=== PATIENT | male | born 1970 | race Caucasian/White ===

== ENCOUNTER 2020-08-20 08:43 | Inpatient (IN) | payer BC, OTHER ==
[~2020-08-20] VITALS: Ht 185.4 cm; Wt 130.8 kg
[2020-08-20] MEDS ORDERED: ASPirin 81 mg TAB PO ONE (09:15)
[2020-08-20] MEDS ORDERED: MORPHINE SULFATE 4 MG/ML SYR/VIAL IV ONE (09:15)
[2020-08-20] MEDS ORDERED: ONDANSETRON HCL 4 MG/2 ML VIAL IV ONE (09:15)
[2020-08-20] MEDS ORDERED: NITROGLYCERIN 0.4 MG SL TAB SL ONE (09:15)
[2020-08-20 09:26] LABS: Basophils # (auto) 0.1 10 ^3/uL (0-0.2); Basophils % (auto) 0.8 % (0.0-2.0); Eosinophils # (auto) 0.1 10 ^3/uL (0-0.8); Eosinophils % (auto) 0.8 % (0.0-7.0); Hematocrit 44.3 % (41.0-53.0); Hemoglobin 15.1 g/dL (13.5-17.5); Lymphocytes # (auto) 2.8 10 ^3/uL (0.4-5.4); Lymphocytes % (auto) 40.8 % (10.0-50.0); Mean Corpuscular Hemoglobin 29.3 pg (28.0-32.0); Mean Corpuscular Hgb Conc. 34.1 g/dL (32.0-36.0); Mean Corpuscular Volume 86.1 fL (80.0-100.0); Monocytes # (auto) 0.5 10 ^3/uL (0-1.3); Monocytes % (auto) 7.4 % (0.0-12.0); Neutrophils # (auto) 3.4 10 ^3/uL (1.6-8.6); Neutrophils % (auto) 50.2 % (37.0-80.0); Nucleated Red Blood Cells % 0.1 %; Platelet Count (auto) 176 10^3/uL (140-450); Red Blood Cells 5.14 10^6/uL (4.5-5.90); Red Cell Distribution Width 14.2 % (11.8-14.3); White Blood Cell 6.9 10^3/uL (4.4-10.8)
[2020-08-20 09:40] LABS: Alanine Aminotransferase 50 U/L (16-61); Anion Gap 7 (5-15); Aspartate Aminotransferase 21 U/L (15-37); BUN/Creatinine Ratio 16.5; Blood Urea Nitrogen 13 mg/dL (7-18); Calcium 8.6 mg/dL (8.5-10.1); Carbon Dioxide 23 mmol/L (21-32); Chloride 106 mmol/L (98-107); GFR African American 135 mL/min; GFR Non-African American 111 mL/min; Glucose 154 mg/dL (74-106); Sodium 136 mmol/L (136-145)
[2020-08-20 09:50] LABS: Alkaline Phosphatase 65 U/L (45-117); Bilirubin, Total 0.5 mg/dL (0.2-1.0); Total Protein 7.9 g/dL (6.4-8.2)
[2020-08-20 11:58] LABS: Amphetamine Screen, Urine NEGATIVE (NEGATIVE); Barbiturate Scree,Urine NEGATIVE (NEGATIVE); Benzodiazephine Screen, Urine NEGATIVE (NEGATIVE); Cannabinoid Screen, Urine NEGATIVE (NEGATIVE); Cocaine Screen, Urine NEGATIVE (NEGATIVE); Opiate Scree,Urine NEGATIVE (NEGATIVE); Phencyclidine Screen, Urine NEGATIVE (NEGATIVE)
[2020-08-20] MEDS ORDERED: NITROGLYCERIN 0.4 MG SL TAB SL PRN (12:15)
[2020-08-20] MEDS ORDERED: ONDANSETRON HCL 4 MG/2 ML VIAL IV PRN (12:15)
[2020-08-20] MEDS ORDERED: MORPHINE SULF INJ 2 MG/ML SYRINGE 1ML IV PRN ×2 (12:15)
[2020-08-20] MEDS ORDERED: HYDROcodone-ACET 5/325MG TAB PO PRN (12:15)
[2020-08-20] MEDS ORDERED: hydrALAZINE HCL 20 MG/ML VL IV PRN (12:15)
[2020-08-20] MEDS ORDERED: NITROGLYCERIN 0.4MG/HR TOPICAL PATCH TD ONE (12:15)
[2020-08-20 12:48] LABS: CRP High Sensitivity 0.06 mg/dL (< 0.3)
[2020-08-20] MEDS: ACETAMINOPHEN 500 MG TAB PO PRN (17:08)
[2020-08-20 20:00] VITALS: BP 129/63
[2020-08-20] MEDS: ATORVASTATIN 20 MG TAB PO SCH (21:09)
[2020-08-20] MEDS: METOPROLOL TARTRATE 25 MG TAB PO SCH (21:09)
[2020-08-20] MEDS ORDERED: METO-158 PO (21:58)
[2020-08-20] MEDS ORDERED: ATOR80TA PO (21:58)
[2020-08-20] MEDS ORDERED: LISI-275 PO (21:58)
[2020-08-20 22:00] VITALS: BP 129/63
[2020-08-20 23:30] LABS: INR 1.08 (0.9-1.15)
[2020-08-21 05:09] VITALS: BP 120/71
[2020-08-21 05:21] LABS: Basophils # (auto) 0 10 ^3/uL (0-0.2); Basophils % (auto) 0.4 % (0.0-2.0); Eosinophils # (auto) 0.1 10 ^3/uL (0-0.8); Eosinophils % (auto) 1.2 % (0.0-7.0); Hematocrit 42.4 % (41.0-53.0); Hemoglobin 14.4 g/dL (13.5-17.5); Lymphocytes # (auto) 2.8 10 ^3/uL (0.4-5.4); Lymphocytes % (auto) 30.8 % (10.0-50.0); Mean Corpuscular Hemoglobin 29.5 pg (28.0-32.0); Mean Corpuscular Volume 86.8 fL (80.0-100.0); Monocytes # (auto) 0.7 10 ^3/uL (0-1.3); Monocytes % (auto) 8.2 % (0.0-12.0); Neutrophils # (auto) 5.3 10 ^3/uL (1.6-8.6); Neutrophils % (auto) 59.4 % (37.0-80.0); Platelet Count (auto) 153 10^3/uL (140-450); Red Blood Cells 4.88 10^6/uL (4.5-5.90); Red Cell Distribution Width 13.9 % (11.8-14.3)
[2020-08-21 05:35] LABS: BUN/Creatinine Ratio 16.7; Calcium 8.5 mg/dL (8.5-10.1)
[2020-08-21 05:36] LABS: INR 1.08 (0.9-1.15); Partial Thromboplastin Time 28.8 sec (23.0-31.2)
[2020-08-21 06:57] LABS: Urine Bacteria NONE SEEN /hpf (None Seen); Urine Blood Negative /uL (Negative); Urine Mucus FEW (None Seen); Urine Specific Gravity 1.023 (1.001-1.035); Urine WBC 1 /hpf (0 - 3)
[2020-08-21] MEDS: ACETAMINOPHEN 500 MG TAB PO PRN (08:38)
[2020-08-21] MEDS: METOPROLOL TARTRATE 25 MG TAB PO SCH ×2 (08:38→21:28)
[2020-08-21] MEDS: LISINOPRIL 10 MG TAB PO SCH (08:39)
[2020-08-21] MEDS: ASPirin-EC 81 mg tab PO SCH (08:39)
[2020-08-21] MEDS: NITROGLYCERIN 0.4MG/HR TOPICAL PATCH TD SCH (08:42)
[2020-08-21] MEDS: FAMOTIDINE 20 MG TAB PO SCH (08:48)
[2020-08-21 09:00] VITALS: BP 119/62
[2020-08-21 13:00] VITALS: BP 120/56
[2020-08-21] MEDS: ATORVASTATIN 20 MG TAB PO SCH (21:27)
[2020-08-21 21:33] VITALS: BP 133/68
[2020-08-22 05:30] VITALS: BP 122/65
[2020-08-22] MEDS ORDERED: IODIXANOL 320MG/ML 100ML BTL IV ONE ×2 (07:28→07:35)
[2020-08-22] MEDS ORDERED: LIDOCAINE 2%HCL (LOCAL ANESTH.) INJ 20ML MDV ONE (07:28)
[2020-08-22] MEDS ORDERED: ANGIOMAX 250 MG VIAL IV ONE (07:34)
[2020-08-22] MEDS ORDERED: HEPARIN SODIUM (PORCINE) 5000 UNITS/ML 1ML VIAL ONE (07:34)
[2020-08-22] MEDS ORDERED: VERAPAMIL 2.5MG/ML INJ 2ML VIAL IV ONE (07:34)
[2020-08-22] MEDS ORDERED: SODIUM CHL 0.9% 50 ML ONE (07:35)
[2020-08-22] MEDS ORDERED: fentaNYL CITRATE 100 MCG/2 ML VL ONE ×2 (07:35→08:02)
[2020-08-22] MEDS ORDERED: MIDAZOLAM HCL 1MG/1ML-2 ML VIAL ONE (07:35)
[2020-08-22] MEDS: NITROGLYCERIN 0.4MG/HR TOPICAL PATCH TD SCH (10:00)
[2020-08-22] MEDS: METOPROLOL TARTRATE 25 MG TAB PO SCH (11:21)
[2020-08-22] MEDS: ASPirin-EC 81 mg tab PO SCH (11:21)
[2020-08-22] MEDS: LISINOPRIL 10 MG TAB PO SCH (11:21)
[2020-08-22] MEDS: FAMOTIDINE 20 MG TAB PO SCH (11:21)
[2020-08-22] MEDS ORDERED: ASPI-543 PO (11:35)
[2020-08-22] MEDS ORDERED: ATOR20TA50 PO (11:35)
[2020-08-22 13:00] VITALS: BP 138/75
[2020-08-22] MEDS: ACETAMINOPHEN 500 MG TAB PO PRN (13:19)
[2020-08-22 14:32] VITALS: BP 132/69
== END 2020-08-22 15:50 | disposition home or self-care (01) | DRG 287 ==
LOC: ER 08:43 → TELE 12:10 → TELE-WESTW 19:32
PROVIDERS: ADMIT Nurse Practitioner Acute Care; ATTEND Internal Medicine
PROC: 4A023N7 Measurement of Cardiac Sampling and Pressure, Left Heart, Percutaneous Approach (ICD-10-PCS; principal; 2020-08-22)
PROC: B2111ZZ Fluoroscopy of Multiple Coronary Arteries using Low Osmolar Contrast (ICD-10-PCS; 2020-08-22)
DX: I25.10 Atherosclerotic heart disease of native coronary artery without angina pectoris (principal); I50.20 Unspecified systolic (congestive) heart failure; I11.0 Hypertensive heart disease with heart failure; E78.5 Hyperlipidemia, unspecified; Z20.822 Contact with and (suspected) exposure to COVID-19; E66.01 Morbid (severe) obesity due to excess calories; Z95.5 Presence of coronary angioplasty implant and graft; Z68.38 Body mass index [BMI] 38.0-38.9, adult; Z82.49 Family history of ischemic heart disease and other diseases of the circulatory system; Z87.891 Personal history of nicotine dependence
CPT/HCPCS: 36415; 71046; 80048; 80053; 80061; 80307; 81001; 84484; 85025; 85610; 85730; 86141; 86850; 86900; 86901; 87426; 93005; 93306; 93458; 96374; 96375; 99152; 99153; G0378; J2250; J2405; Q9967

== ENCOUNTER 2022-08-04 19:53 | Emergency (ER) | payer BC, OTHER ==
[~2022-08-04] VITALS: Ht 185.4 cm; Wt 123.0 kg
[~2022-08-04 19:53] MED LIST: ASPI-543 PO; ATOR20TA50 PO; LISI-275 PO; METO-158 PO
[2022-08-04 21:24] LABS: Basophils # (auto) 0 10 ^3/uL (0-0.2); Basophils % (auto) 0.5 % (0.0-2.0); Eosinophils # (auto) 0.1 10 ^3/uL (0-0.8); Eosinophils % (auto) 1.1 % (0.0-7.0); Hematocrit 43.5 % (41.0-53.0); Lymphocytes # (auto) 2.3 10 ^3/uL (0.4-5.4); Lymphocytes % (auto) 31.1 % (10.0-50.0); Mean Corpuscular Hemoglobin 29.3 pg (28.0-32.0); Mean Corpuscular Hgb Conc. 34.4 g/dL (32.0-36.0); Mean Corpuscular Volume 85.3 fL (80.0-100.0); Monocytes # (auto) 0.6 10 ^3/uL (0-1.3); Monocytes % (auto) 7.8 % (0.0-12.0); Neutrophils # (auto) 4.5 10 ^3/uL (1.6-8.6); Neutrophils % (auto) 59.5 % (37.0-80.0); Nucleated Red Blood Cells % 0.3 %; Red Cell Distribution Width 14.2 % (11.8-14.3); White Blood Cell 7.5 10^3/uL (4.4-10.8)
[2022-08-04 21:36] LABS: INR 1.03 (0.9-1.15); Partial Thromboplastin Time 29.3 sec (24.6-33.4)
[2022-08-04 22:02] LABS: Albumin 4.1 g/dL (3.4-5.0); BUN/Creatinine Ratio 14.9 (10.0-20.0); Calcium 9.8 mg/dL (8.5-10.1)
[2022-08-04 22:04] LABS: Bilirubin, Total 0.5 mg/dL (0.2-1.0); Total Protein 8.1 g/dL (6.4-8.2)
[2022-08-04] MEDS ORDERED: ALPRAZolam 0.5 MG TAB PO ONE (22:15)
[2022-08-05] LABS: Urine Bacteria NONE SEEN /hpf (None Seen); Urine Blood Negative /uL (Negative); Urine Mucus FEW (None Seen); Urine Specific Gravity 1.034 (1.001-1.035); Urine WBC 1 /hpf (0 - 3)
[2022-08-05 02:25] VITALS: BP 139/86
== END 2022-08-05 02:28 | disposition home or self-care (01) ==
LOC: EDBD 19:53 → ER 19:53
DX: R07.89 Other chest pain (principal); E78.5 Hyperlipidemia, unspecified; I10 Essential (primary) hypertension; Z87.891 Personal history of nicotine dependence; Z79.899 Other long term (current) drug therapy; Z79.82 Long term (current) use of aspirin
CPT/HCPCS: 36415; 71045; 80053; 81001; 83880; 84484; 85025; 85610; 85730; 93005